=== PATIENT | female | born 1930 | race Caucasian/White ===

== ENCOUNTER → 2016-12-26 | Outpatient (CLI) | payer OTHER ==
[~2016-12-26] MED LIST: AKWA TEARS EYE15 ML OPHTHALMIC; APAP500 PO; ASPIRIN81 M2 PO; BENAZEPRIL HCL10 MG PO; CALCIUM CITRAT1 EA14 PO; CEFTIN500 MG PO; GLIPIZIDE ER5 MG PO; GLUCOPHAGE500 MG PO; GLUCOTROL5 MG PO; IBUPROFEN 200200 M1 PO; LANTUS SQ; LEVEMIR SUBQ; LORATIDINE 10 M10 M1 PO; MULTI VITAMIN1 EACH PO; MULTIVITAMINS1 EAC7 PO; NITROSTAT0.4 MG SL; PRILOSEC 20 MG20 MG PO; PROAIR HFA8.5 GM INH; VENTOLIN HFA 1818 GM INH; ZYRTEC10 M2 PO
== END ==
LOC: RAD 02:54
DX: Z12.31 Encounter for screening mammogram for malignant neoplasm of breast (principal)

== ENCOUNTER → 2017-05-30 | Outpatient (CLI) | payer OTHER | LOC: RAD 10:32 → CAT 10:33 → RAD 12:13 | DX: K57.32 Diverticulitis of large intestine without perforation or abscess without bleeding (principal); R10.2 Pelvic and perineal pain; M25.552 Pain in left hip ==

== ENCOUNTER → 2018-03-05 | Outpatient (CLI) | payer OTHER | LOC: RAD 00:51 | DX: Z12.31 Encounter for screening mammogram for malignant neoplasm of breast (principal) ==

== ENCOUNTER → 2018-04-04 | Outpatient (CLI) | payer OTHER | LOC: RAD 09:55 | DX: M41.84 Other forms of scoliosis, thoracic region (principal); M25.551 Pain in right hip ==

== ENCOUNTER → 2019-02-09 | Outpatient (CLI) | payer OTHER | LOC: NUC 06:48 | DX: I70.213 Atherosclerosis of native arteries of extremities with intermittent claudication, bilateral legs (principal); R07.9 Chest pain, unspecified; J44.9 Chronic obstructive pulmonary disease, unspecified; E11.9 Type 2 diabetes mellitus without complications; Z88.5 Allergy status to narcotic agent; Z87.898 Personal history of other specified conditions; Z82.49 Family history of ischemic heart disease and other diseases of the circulatory system; Z79.4 Long term (current) use of insulin; Z79.84 Long term (current) use of oral hypoglycemic drugs ==

== ENCOUNTER → 2019-02-18 | Outpatient (CLI) | payer OTHER ==
--- NOTE | 2019-02-18 12:17 | 2DMMODE ---
[facility] [place] [address] 2 D/M-MODE ECHOCARDIOGRAM Name: DAYNASHIN [facility] [id number] ������������� Admission: 02/18/19 ������������� Attend Phys: Ayaz Bello Discharge: ��� ������������� ��� Date of : 32 Date of Service: 02/18/19 1217 �� Report #: [id number] �������� ��������������������������������������������[id number] THIS REPORT FOR: //name// APPROVED REPORT Study performed: 02/18/2019 11:00:51 EXAM: Comprehensive 2D, Doppler, and color-flow Echocardiogram Patient Location: Out-Patient Status: routine BSA: 1.53 HR: 75 bpm BP: 168/74 mmHg Rhythm: Sinus arrhythmia Other Information Study Quality: Good Indications Chest Pain Hx: DM, COPD. 2D Dimensions IVSd: 11.05 (7-11mm) LVOT Diam: 20.16 (18-24mm) LVDd: 40.83 mm PWd: 9.71 (7-11mm) Ascending Ao: 32.22 (22-36mm) LVDs: 25.99 (25-40mm) Aortic Root: 31.63 mm Volumes Left Atrial Volume (Systole) Single Plane 4CH: 22.27 mL Single Plane 2CH: 39.48 mL LA ESV Index: 21.00 mL/m2 Aortic Valve AoV Peak Clarence.: 1.10 m/s AO Peak Gr.: 4.85 mmHg LVOT Max P.35 mmHg LVOT Max V: 0.92 m/s DEBBIE Vmax: 2.65 cm2 Mitral Valve E/A Ratio: 0.6 MV Decel. Time: 295.74 ms MV E Max Clarence.: 0.85 m/s [facility] [address] [place] [address] 2 D/M-MODE ECHOCARDIOGRAM Name: SHIN MCINTOSH [facility]#: [id number] ������������� Admission: 02/18/19 ������������� Attend Phys: Ayaz Bello Discharge: ��� ������������� ��� Date of : 32 Date of Service: 02/18/19 1217 �� Report #: [id number] �������� ��������������������������������������������[id number] MV A Clarence.: 1.38 m/s MV PHT: 85.77 ms IVRT: 92.27 ms Pulmonary Valve PV Peak Clarence.: 0.77 m/s PV Peak Gr.: 2.36 mmHg Pulmonary Vein P Vein S: 0.54 m/s P Vein A: 0.33 m/s P Vein D: 0.27 m/s P Vein A Dur.: 124.6 msec P Vein S/D Ratio: 2.00 Tricuspid Valve TR Peak Clarence.: 2.74 m/s RAP Estimate: 5.00 mmHg TR Peak Gr.: 29.99 mmHg PA Pressure: 35.00 mmHg Left Ventricle The left ventricle is normal size. There is normal LV segmental wall motion. Mild basal septal hypertrophy is present. Left ventricular systolic function is normal. LVEF is 55-60%. Mild diastolic dysfunction is present (impaired relaxation pattern). Right Ventricle The right ventricle is normal size. The right ventricular systolic function is normal. Atria The left atrium size is normal. The right atrium size is normal. Aortic Valve Aortic valve is trileaflet. No aortic regurgitation is present. There is no aortic valvular stenosis. Mitral Valve Mitral valve leaflets are mildly thickened. Moderate mitral annular calcification. Trace mitral regurgitation. No evidence of mitral valve stenosis. Tricuspid Valve The tricuspid valve is normal in structure. Mild tricuspid regurgitation. Estimated PAP is 35mmHg. Pulmonic Valve The pulmonary valve is normal in structure. Mild pulmonic [facility] [address] [place] [address] 2 D/M-MODE ECHOCARDIOGRAM Name: DAYNASHIN Room #: REG JEFF Mack#: [id number] ������������� Admission: 02/18/19 ������������� Attend Phys: Ayaz Bello Discharge: ��� ������������� ��� Date of : 32 Date of Service: 02/18/19 1217 �� Report #: [id number] �������� ��������������������������������������������[id number] regurgitation. Great Vessels The aortic root is normal in size. The ascending aorta is normal in size. IVC is normal in size and collapses >50% with inspiration. Pericardium There is no pericardial effusion. <Conclusion> The left ventricle is normal size. LVEF is 55-60%. Aortic valve is trileaflet. Mitral valve leaflets are mildly thickened. Moderate mitral annular calcification. Trace mitral regurgitation. The tricuspid valve is normal in structure. Mild tricuspid regurgitation. Estimated PAP is 35mmHg. The pulmonary valve is normal in structure. Mild pulmonic regurgitation. There is no pericardial effusion. ��������������������������������������������� <ELECTRONICALLY SIGNED> ���������������������������������������� By: Ayaz Saab MD ��������������������������������������������� 02/18/19 1217 16 16 Ayaz Saab MD /INF
== END ==
LOC: CV 10:35
DX: I08.8 Other rheumatic multiple valve diseases (principal); E11.9 Type 2 diabetes mellitus without complications; J44.9 Chronic obstructive pulmonary disease, unspecified; Z87.898 Personal history of other specified conditions

== ENCOUNTER → 2019-03-04 | Outpatient (CLI) | payer OTHER ==
[~2019-03-04] VITALS: Ht 160 cm; Wt 55.3 kg
[~2019-03-04] MED LIST changes: +PLAVIX 75 MG TA75 M1 PO
[2019-03-04 08:09] VITALS: BP 151/45
[2019-03-04 08:12] LABS: HEMATOCRIT 36.3 % (37.0-47.0); HEMOGLOBIN 12.2 gm/dL (12.0-15.0); MCH 28.9 pg (26.0-34.0); MCHC 33.6 g/dL (28.0-37.0); RBC 4.22 mil/uL (4.20-5.00); RDW 14.4 % (10.5-14.5); WBC 7.9 thou/uL (4.0-11.0)
[2019-03-04 08:20] LABS: CALCIUM 9.6 mg/dL (8.5-10.1); CREATININE 0.8 mg/dL (0.6-1.0)
== END | disposition home or self-care (01) ==
LOC: SPEC 07:29
PROVIDERS: Nuclear Medicine Nuclear Cardiology
DX: I70.248 Atherosclerosis of native arteries of left leg with ulceration of other part of lower leg (principal); L97.929 Non-pressure chronic ulcer of unspecified part of left lower leg with unspecified severity; I70.1 Atherosclerosis of renal artery; I10 Essential (primary) hypertension; I25.10 Atherosclerotic heart disease of native coronary artery without angina pectoris; E11.9 Type 2 diabetes mellitus without complications; J44.9 Chronic obstructive pulmonary disease, unspecified; F41.9 Anxiety disorder, unspecified; F32.9 Major depressive disorder, single episode, unspecified; Z90.710 Acquired absence of both cervix and uterus; Z90.49 Acquired absence of other specified parts of digestive tract; Z98.890 Other specified postprocedural states; Z87.19 Personal history of other diseases of the digestive system; Z87.891 Personal history of nicotine dependence; Z88.6 Allergy status to analgesic agent; Z88.8 Allergy status to other drugs, medicaments and biological substances; Z79.82 Long term (current) use of aspirin; Z79.899 Other long term (current) drug therapy; Z79.4 Long term (current) use of insulin

== ENCOUNTER → 2019-03-16 | Outpatient (CLI) | payer OTHER ==
[~2019-03-16] VITALS: Ht 154.9 cm; Wt 55.3 kg
[~2019-03-16] MED LIST changes: +ASPIR 8181 MG PO
[2019-03-16 07:57] VITALS: BP 184/85
== END ==
LOC: SPEC 06:58
DX: I70.211 Atherosclerosis of native arteries of extremities with intermittent claudication, right leg (principal); I25.10 Atherosclerotic heart disease of native coronary artery without angina pectoris; E78.5 Hyperlipidemia, unspecified; F32.9 Major depressive disorder, single episode, unspecified; J44.9 Chronic obstructive pulmonary disease, unspecified; E11.9 Type 2 diabetes mellitus without complications; Z87.891 Personal history of nicotine dependence; Z90.710 Acquired absence of both cervix and uterus; Z95.820 Peripheral vascular angioplasty status with implants and grafts

== ENCOUNTER 2019-05-23 20:55 | Emergency (ER) | payer OTHER ==
[~2019-05-23] VITALS: Ht 160 cm; Wt 56.7 kg
[2019-05-23] MEDS ORDERED: ULTRAM 50MG TAB50 MG PO (23:53)
[2019-05-24 00:10] VITALS: BP 170/65
== END 2019-05-24 00:30 | disposition home or self-care (01) ==
LOC: ER 20:55
DX: S80.01XA Contusion of right knee, initial encounter (principal); M71.21 Synovial cyst of popliteal space [Baker], right knee; E11.9 Type 2 diabetes mellitus without complications; J44.9 Chronic obstructive pulmonary disease, unspecified; F41.9 Anxiety disorder, unspecified; K58.9 Irritable bowel syndrome, unspecified; I25.10 Atherosclerotic heart disease of native coronary artery without angina pectoris; E78.5 Hyperlipidemia, unspecified; F32.9 Major depressive disorder, single episode, unspecified; Z90.49 Acquired absence of other specified parts of digestive tract; Z98.890 Other specified postprocedural states; Z87.891 Personal history of nicotine dependence; Z88.8 Allergy status to other drugs, medicaments and biological substances; Z88.6 Allergy status to analgesic agent; X58.XXXA Exposure to other specified factors, initial encounter; Y93.89 Activity, other specified; Y92.89 Other specified places as the place of occurrence of the external cause; Y99.8 Other external cause status

== ENCOUNTER 2019-06-17 11:05 | Inpatient (IN) | payer OTHER ==
[~2019-06-17] VITALS: Ht 157.5 cm; Wt 54.7 kg
[~2019-06-17 11:05] MED LIST changes: +ULTRAM 50MG TAB50 MG PO
[2019-06-17 11:06] VITALS: BP 129/65
[2019-06-17 11:35] LABS: URINE BILIRUBIN NEGATIVE (Negative); URINE BLOOD NEGATIVE (Negative); URINE CLARITY CLEAR; URINE COLOR YELLOW; URINE GLUCOSE-RANDOM* NEGATIVE (Negative); URINE KETONES NEGATIVE (Negative); URINE LEUKOCYTES NEGATIVE (Negative); URINE NITRITE NEGATIVE (Negative); URINE PROTEIN (DIPSTICK) NEGATIVE (Negative); URINE UROBILINOGEN 0.2 E.U./dl (0.2-1.0)
[2019-06-17 11:41] LABS: BASOPHILS 0.8 % (0.0-2.0); EOSINOPHILS 0.9 % (0.0-3.0); HEMATOCRIT 37.9 % (37.0-47.0); HEMOGLOBIN 12.6 gm/dL (12.0-15.0); LYMPHOCYTES 13.1 % (24.0-44.0); MCH 28.6 pg (26.0-34.0); MCHC 33.4 g/dL (28.0-37.0); MCV 85.7 fL (80.0-100.0); MONOCYTES 8.9 % (1.0-8.0); PLATELET COUNT 243 thou/uL (150-400); POLYS 76.3 % (36.0-66.0); RBC 4.42 mil/uL (4.20-5.00); RDW 15.2 % (10.5-14.5); WBC 9.2 thou/uL (4.0-11.0)
[2019-06-17 11:48] LABS: CALCIUM 9.7 mg/dL (8.5-10.1); CREATININE 0.8 mg/dL (0.6-1.0); POTASSIUM 4.1 mmol/L (3.5-5.1)
[2019-06-17 11:53] LABS: TOTAL BILIRUBIN 0.5 mg/dL (<0.1-1.0); TOTAL PROTEIN 8.7 g/dL (6.4-8.2)
[2019-06-17 12:47] VITALS: BP 102/66
[2019-06-17 13:48] VITALS: BP 144/43
[2019-06-17 14:37] LABS: FOLIC ACID 18.7 ng/mL (8.6-58.9)
[2019-06-17 14:45] VITALS: BP 143/72
--- NOTE | 2019-06-17 16:32 | EKG ---
[address] [address] ELECTROCARDIOGRAM REPORT Name: SHIN MCINTOSH Room #: 215-P ADM IN M.R.#: [id number] ������������������ Admission: 06/17/19 ������������������ Attend Phys: Troy Gorman MD Discharge: ������������������ Date of : 31 Report #: [id number] ����������������������������������������������������������������� [id number] THIS REPORT FOR: //name// [facility] ED Test Date: 2019-06-17 Test Time: 11:21:47 Pat Name: SHIN MCINTOSH Department: Room: Gender: F Order Processing Manager: : 1930 Requested By: Order Number: [id number] MD: Junior Medina Measurements Intervals [place] Rate: 84 P: 48 PA: 172 QRS: -50 QRSD: 122 T: 111 QT: 381 QTc: 451 Interpretive Statements Sinus rhythm Atrial premature complex Left bundle branch block Baseline wander in lead(s) I,II,aVR Compared to ECG 12/15/2016 14:25:18 Atrial premature complex(es) now present Electronically Signed On 06-17-2019 16:31:51 CDT by Junior Medina [email or web address] ��������������������������������������������� <ELECTRONICALLY SIGNED> ���������������������������������������� By: Junior Medina MD ��������������������������������������������� 06/17/19 1631 1121 1121 Junior Medina MD /EPI
--- NOTE | 2019-06-17 18:23 | NUR ---
ASSUMMED PT CARE AT APPROXIMATELY 1445. PT A&O X4. VITAL SIGNS STABLE. BLOOD SUGAR STABLE. ASSESSMENT CHARTED. PT ACCOMPANIED WITH FAMILY. PT AND FAMILY EDUCATED WITH POC. PT AND FAMILY DENIED FURTHER QUESTIONS. FALL PRECAUTIONS IN PLACE. PT AMBULATES STEADY WITH ASSIST X1. ADMISSION PROCESS COMPLETE. PT STATED SHE HAD R KNEE PAIN. PT RECEIVED ANALGESICS. PT STATED PAIN RELIEVED WITH ANALGESICS. PT COMFORTABLE IN BED. PT DENIED HAVING CHEST PAIN. PT DENIED HAVING SOB.
[2019-06-17 20:17] VITALS: BP 108/57
[2019-06-17 20:44] VITALS: BP 128/64
[2019-06-18 00:16] VITALS: BP 130/56
[2019-06-18 04:51] VITALS: BP 124/65
[2019-06-18 05:34] LABS: CALCIUM 9.1 mg/dL (8.5-10.1); CREATININE 0.7 mg/dL (0.6-1.0); MAGNESIUM 2.1 mg/dL (1.8-2.4); POTASSIUM 4.6 mmol/L (3.5-5.1)
[2019-06-18 05:35] LABS: ABSOLUTE NEUTROPHILS 3.7 thou/uL (1.4-8.2); BASOPHILS 1.1 % (0.0-2.0); EOSINOPHILS 4.2 % (0.0-3.0); HEMATOCRIT 35.2 % (37.0-47.0); HEMOGLOBIN 11.6 gm/dL (12.0-15.0); LYMPHOCYTES 25.1 % (24.0-44.0); MCH 28.1 pg (26.0-34.0); MCHC 32.9 g/dL (28.0-37.0); MCV 85.5 fL (80.0-100.0); MONOCYTES 11.6 % (1.0-8.0); PLATELET COUNT 214 thou/uL (150-400); RBC 4.12 mil/uL (4.20-5.00); RDW 14.9 % (10.5-14.5); WBC 6.4 thou/uL (4.0-11.0)
--- NOTE | 2019-06-18 06:36 | NUR ---
ASSUME CARE 1900. PT/VITALS STABLE. ADEQUATE REST NOTED THROUGH NIGHT. INTERMITTENT LEFT KNEE PAIN/ WITH MEDS FOR RELIEF. TOLERATES ACTIVITY WELL. UP TO BATHROOM WITH ASSISTANCE. PROGRESSING WELL WITH POC. PLAN IS TO CONTINUE TO MONITOR LEVEL OF CONCIOUSNESS AND BLOOD SUGAR LEVELS. SWS WITH DISCHARGE PLANNING. WILL CONTINUE TO MONITOR AND FOLLOW WI POC
[2019-06-18 08:00] VITALS: BP 105/54
[2019-06-18 12:00] VITALS: BP 117/38
--- NOTE | 2019-06-18 13:40 | NUR ---
Case opened to follow for dc planning. Early Childhood Education Worker visited with the pt at bedside this morning and her son Chadwick via phone this afternoon. Pt was able to participate dc planning conversation. She lives alone in her home of 50+yrs. She has been a since last summer. She is able to express her grief and adjustment to living alone. She reports her sons Chadwick and Rizwan are involved daily and supportive. She drives and manages her IADL's. She has one step to enter her home and one inside down to the living room. Her bedroom,bath and kitchen are all on the same level. She does not use an assistive device but has lots of used dme if needed. She manages her own medications and checks her blood sugars. She has lifline but did not remember to press the button when she woke up not feeling well. Her sons confirmed the above assessment info and indicates that she has neighbors that check in on her also. He has asked her to come live with him in [place] but she has wanted to stay in her own home. He will talk with her and his brother regarding 24hr supervision, no driving and medication mgnt. They may need to stay with her if she is unwilling to move in with them. He does not feel she can afford private duty. Both are receptive to HH referral if indicated and or SNF;however she has not needed this in the past. Awaiting PT eval and recommendations. Possible dc tomorrow. Will follow.
[2019-06-18 16:00] VITALS: BP 131/58
--- NOTE | 2019-06-18 17:26 | NUR ---
PT CARE ASSUMED APPROX 0915. PT ALERT AND ORIENTED X4. DENIES PAIN AND SOA. VSS. BS ELEVATED BUT POC ADJUSTED FOR ADEQUATE MANAGEMENT OF HYPERGLYCEMIA. WILL MONITOR. PT UP WITH SBA AND WALKER. STEADY. FALL PRECAUTIONS MAINTAINED. PT AND FAMILY UPDATED REGARDED CHANGES TO POC. ALL DENY QUESTIONS AND CONCERNS REGARDING POC. PT TOLERATING CHANGES TO POC. NO DISTRESS NOTED.
[2019-06-18 19:37] VITALS: BP 146/62
[2019-06-19] VITALS (7 sets, daily range): BP systolic 121–133; BP diastolic 63–68
--- NOTE | 2019-06-19 07:27 | NUR ---
ASSUME CARE 1900. PT/VITALS STABLE. INTERMITTENT RIGHT KNEE PAIN. UP WITH ASSISTANCE TO BATHROOM. ASSESSMENT CHARTED. PROGRESSING WELL WITH POC. A/o X 4. BS STABILIZED. PLAN IS A POSSIBLE DISCHARGE TODAY BACK HOME. WILL BENEFIT FROM CASE MANAGEMENT AND SWS DISCAHRGE PLANNING. WILL CONTINUE TO MONITOR AND FOLLOW WITH POC
--- NOTE | 2019-06-19 08:16 | HC ---
[facility] [place] [address] CONSULTATION Name: SHIN MCINTOSH Room #: 215-P [facility] IN M.R.#: [id number] Admission: 06/17/19 ������������������ Attend Phys: Troy Gorman MD Discharge: ������������������ Date of : 31 Report #: [id number] THIS REPORT FOR: //name// CC: Herbert Gorman DATE OF SERVICE: 06/18/2019 CONSULTING PHYSICIAN: ____. REASON FOR CONSULTATION: Uncontrolled type 2 diabetes mellitus, hypoglycemia. HISTORY OF PRESENT ILLNESS: This is an 88-year-old female patient whose medical background is significant for longstanding type 2 diabetes mellitus as well as asthma and COPD. The patient has been maintained on a regimen of Levemir insulin 50 units q.p.m. as well as glipizide 5 mg b.i.d. and metformin 500 mg b.i.d. The patient notes that she has run into trouble with hypoglycemia a few months ago, which had led Dr. Zendejas to propose a reduction in her insulin dose from 50 to 30 units. She notes that when this reduction had actually taken place that she has done much better and that hypoglycemia virtually disappeared. However, the patient reports that she had decided about a week ago to resume the intake of 50 units of Levemir at night and since she has done that, she has experienced significant and recurrent issues with hypoglycemia with blood glucose values reaching as low as 50 mg/dL and mostly doing so while she is sleeping and in the early mornings. The patient knows that she was confused and unable to recall names and phone numbers when she underwent her last hypoglycemic episode and was subsequently admitted for further care and monitoring. The patient notes that she has had some eye complications due to diabetes in the past, but not chronic kidney disease. She also has peripheral diabetic neuropathy affecting both hands to where she cannot quilt anymore, which is something she has done for years, the patient has extensive vascular disease and had needed one stent placed in her left lower extremity and 3 stents placed in her right lower extremity less than 6 months ago. The patient notes/knows that she has not been getting out much due to her knee pain as that can stop her from being able to drive. Also, she has been somewhat depressed since her less than a year ago. REVIEW OF SYSTEMS: CONSTITUTIONAL: Fatigue, tiredness, but not fever or chills or changes in body weight. HEENT: Negative for sinus congestion, ear pain or ear drainage. [facility] [address] [place] [address] CONSULTATION Name: SHIN MCINTOSH Room #: 215-P [facility] IN .R.#: [id number] Admission: 06/17/19 ������������������ Attend Phys: Troy Gorman MD Discharge: ������������������ Date of : 31 Report #: [id number] PULMONARY: Noted for dyspnea on exertion and occasional shortness of breath and cough, but no hemoptysis. CARDIAC: Occasional palpitations, but no chest pain, syncope or presyncope. GASTROINTESTINAL: Negative for abdominal pain, nausea, vomiting or significant changes in bowel movement frequency. NEUROLOGY: Imbalance as of late, but not seizures or headaches. PSYCHIATRIC: Slightly depressed mood since the passing of her less than a year ago, has not felt like interacting or socializing much. REVIEW OF SYSTEMS: Noncontributory other than as mentioned in HPI. PAST MEDICAL HISTORY: 1. Type 2 diabetes mellitus. 2. Peripheral vascular disease, status post stent placements, 1 in the left lower extremity, 3 in the right lower extremity in January 2019. 3. COPD. 4. Diverticulosis. 5. IBS. 6. Depression. 7. GERD. 8. Anxiety. 9. Coronary artery disease. OUTPATIENT MEDICATIONS: Include metformin 500 mg b.i.d., omeprazole 20 mg daily, Levemir 50 units at bedtime, glipizide ER 5 mg b.i.d., Plavix 75 mg daily, aspirin 81 mg daily. ALLERGIES: CODEINE, DOXEPIN, FEXOFENADINE, LANSOPRAZOLE, MINOCYCLINE, MORPHINE and GUAIFENESIN. FAMILY HISTORY: Noncontributory. SOCIAL HISTORY: She lives by herself. She is an ex-smoker. PHYSICAL EXAMINATION: GENERAL: A pleasant elderly female patient who is not in apparent pain or distress. She is lying comfortably in bed. VITAL SIGNS: Blood pressure is 105/54 mmHg, heart rate is 77 beats per minute, respirations 18 per minute, temperature 36.1 degrees. CONSTITUTIONAL: She appears comfortable, not in apparent distress, conversant. HEENT: Anicteric sclerae. Intact extraocular motions. NECK: Supple, without JVD, carotid bruits or lymphadenopathy. I do not appreciate thyromegaly. CHEST: Shows moderate air entry with scattered rales and rhonchi, but without crackles. HEART: Regular rate and rhythm without murmurs or gallops. [facility] [address] [place] [address] CONSULTATION Name: SHIN MCINTOSH Room #: 704-P ADM IN Adriano.#: [id number] Admission: 06/17/19 ������������������ Attend Phys: Troy Gorman MD Discharge: ������������������ Date of : 31 Report #: [id number] ABDOMEN: Soft and lax without tenderness or organomegaly. She has active bowel sounds. EXTREMITIES: Lower extremity exam is negative for ankle edema. The patient has good pedal pulses bilaterally. NEUROLOGIC: Awake, alert and oriented to time, place and person. The remainder of her examination is nonfocal other than for sensory deficit over both lower extremities. PSYCHIATRIC: Pleasant, interactive, appropriate, has normal mood and affect. SKIN: Negative for ulceration discoloration or other major changes. LABORATORY RESULTS: Blood glucose values since arrival have run between 98 and 159 mg/dL. Sodium 132, potassium 4.6, chloride 97, CO2 of 26, anion gap 9, BUN 11, creatinine 0.7, glucose 83, AST 19, amylase 44, lipase 117, total bilirubin 0.5, calcium 9.1, magnesium 2.1, alkaline phosphatase 89, ALT 16, total protein 8.7, albumin 4.0, GFR 79. Lactic acid 1.2. CPK 67. Total cholesterol 137, triglycerides 160, HDL 30, LDL 75. BNP 275. White blood count 6.4, hemoglobin 11.6, hematocrit 35.2, platelets 214, LDL 88 mg/dL, HDL 36 mg/dL, triglycerides 203. TSH 2.607. Vitamin B12 of 406. Hemoglobin A1c 7.8%. ASSESSMENT AND PLAN: 1. Type 2 diabetes mellitus. As noted above, the patient has had a longstanding history of type 2 diabetes mellitus and has done historically well on her regimen. As noted above, the patient's recent issues pertaining more to recurrent and occasionally severe hypoglycemia, which is obviously a main concern, especially that she lives by herself. These considerations were discussed with the patient at length and she seems to be well aware of the implications of such severe hypoglycemia. I advised the patient to commit to Dr. Zendejas's advice regarding the reduction in her insulin dosage and she acknowledged that she should have consulted with him prior to titrating her dose up again to 50 units. In the immediate setting where I would like to do is to resume Levemir at a much lower dose of 30 units daily, but as significantly would rather give her Levemir in the morning as opposed in the evening, so as to decrease the odds of nocturnal hypoglycemia. In the meantime, the patient could continue with her oral medications. I will rule this out to where we will resume metformin here in the hospital, but then have her resume glipizide when she is more stable towards the end of her hospital stay. I stressed the importance of maintaining blood glucose monitoring and avoiding hypoglycemia going forward, which she seemed to understand well. The patient's hemoglobin A1c of 7.8%, good ____ to improve, but I believe the most pressing priority at this point in time would be to eliminate hypoglycemia in the near future. 2. Hypoglycemia. As discussed above, this would be addressed via a series of therapeutic changes, I believe this should take precedence over targeting a more tightly controlled hemoglobin A1c. 3. Hypomagnesemia at 1.7 mg/dL, this has been handled by Hospital Medicine. I agree with the current measures. [address] [address] CONSULTATION Name: SHIN MCINTOSH Room #: 215-P ADM IN M.R.#: [id number] Admission: 06/17/19 ������������������ Attend Phys: Troy Gorman MD Discharge: ������������������ Date of : 31 Report #: [id number] I certainly appreciate this consultation by ____ and appreciate the opportunity to participate in the care of Dr. Zendejas's patient. ��������������������������������������������� <ELECTRONICALLY SIGNED> ���������������������������������������� By: Nayeli Villanueva MD ��������������������������������������������� 06/19/19 0816 1114 1944 Nayeli Villanueva MD /nt
[2019-06-19] MEDS ORDERED: B-12500 MCG PO (11:57)
[2019-06-19] MEDS ORDERED: VITAMIN D2000 UNIT PO (11:57)
[2019-06-19] MEDS ORDERED: MIRALAX17 GM PO (11:57)
[2019-06-19] MEDS ORDERED: ACETAMINOPHEN325 M1 PO (11:57)
--- NOTE | 2019-06-19 14:28 | NUR ---
Pt dcing home today via family car. Her son Chadwick will be here around 3pm to transport her home. Pt's sons are working on providing more supervision and med mngmt for the pt to stay in her own home. HH referral discussed with the pt at bedside and son via phone. She denies any preference as long as they contract with her ins plan. Dc community development planner to fax referral to [facility] for start of care tomorrow (Sat). Pt has a rwalker at home that she can use. Care team updated. No other needs noted at this time. Pt aware that the attending has advised med mngt, 24hr supervision and no driving. Her son is aware as well. [facility] is out of network. Maddie is participating with her ins plan. They will reveiw and confirm soc for tomorrow.
--- NOTE | 2019-06-19 15:54 | NUR ---
FAXED REFERRAL TO [facility] SPOKE WITH MELODY IN INTAKE SHE RECEIVED REFERRAL AND CAN ACCEPT. FAXED DC ORDERS/SUMMARY AND RECEIVED CONFIRMATION.
== END 2019-06-19 15:00 | disposition home health service (06) | DRG 638 ==
LOC: ER 11:05 → EROBS 12:32 → 2N 12:32 → ENTRNSPT 06-19 15:44 → EDTRNSPTSTS 06-19 16:00
PROVIDERS: Emergency Medicine Emergency Medical Services; Nurse Practitioner; ADMIT Internal Medicine
DX: E11.649 Type 2 diabetes mellitus with hypoglycemia without coma (principal); E87.1 Hypo-osmolality and hyponatremia; G92 Toxic encephalopathy; J45.909 Unspecified asthma, uncomplicated; J44.9 Chronic obstructive pulmonary disease, unspecified; F41.9 Anxiety disorder, unspecified; I25.10 Atherosclerotic heart disease of native coronary artery without angina pectoris; E78.5 Hyperlipidemia, unspecified; F32.9 Major depressive disorder, single episode, unspecified; E11.51 Type 2 diabetes mellitus with diabetic peripheral angiopathy without gangrene; K57.90 Diverticulosis of intestine, part unspecified, without perforation or abscess without bleeding; K58.9 Irritable bowel syndrome, unspecified; K21.9 Gastro-esophageal reflux disease without esophagitis; E83.42 Hypomagnesemia; Z66 Do not resuscitate; Z90.710 Acquired absence of both cervix and uterus; Z90.49 Acquired absence of other specified parts of digestive tract; Z95.820 Peripheral vascular angioplasty status with implants and grafts; Z88.6 Allergy status to analgesic agent; Z88.8 Allergy status to other drugs, medicaments and biological substances; Z87.891 Personal history of nicotine dependence
CPT/HCPCS: 10081

== ENCOUNTER → 2019-10-20 | Outpatient (CLI) | payer OTHER ==
[~2019-10-20] MED LIST changes: +ACETAMINOPHEN325 M1 PO; +B-12500 MCG PO; +MIRALAX17 GM PO; +TOPROL XL25 MG PO; +TRESIBA FL100 UNIT/1 SUBQ; +VITAMIN D2000 UNIT PO
== END ==
LOC: SJCVC 12:41
DX: R00.2 Palpitations (principal); R07.89 Other chest pain; M79.604 Pain in right leg; M79.605 Pain in left leg; E11.9 Type 2 diabetes mellitus without complications; Z90.49 Acquired absence of other specified parts of digestive tract; Z90.710 Acquired absence of both cervix and uterus; Z95.5 Presence of coronary angioplasty implant and graft; Z79.899 Other long term (current) drug therapy; Z87.891 Personal history of nicotine dependence; Z82.49 Family history of ischemic heart disease and other diseases of the circulatory system

== ENCOUNTER 2019-10-27 13:19 | Inpatient (IN) | payer OTHER ==
[~2019-10-27] VITALS: Ht 157.5 cm; Wt 62.6 kg
[~2019-10-27 13:19] MED LIST changes: -TOPROL XL25 MG PO; -TRESIBA FL100 UNIT/1 SUBQ
[2019-10-27 13:24] VITALS: BP 87/34
[2019-10-27] MEDS ORDERED: TOPROL XL25 MG PO (13:37)
[2019-10-27] MEDS ORDERED: TRESIBA FL100 UNIT/1 SUBQ (13:42)
[2019-10-27 15:03] LABS: ANION GAP 11 mmol/L (7-16); BUN 17 mg/dL (7-18); CALCIUM 9.7 mg/dL (8.5-10.1); CHLORIDE 96 mmol/L (98-107); CO2 23 mmol/L (21-32); CREATININE 0.9 mg/dL (0.6-1.0); GLUCOSE 148 mg/dL (74-106); POTASSIUM 4.1 mmol/L (3.5-5.1); SODIUM 130 mmol/L (136-145)
[2019-10-27 15:12] LABS: URINE BILIRUBIN NEGATIVE (Negative); URINE BLOOD NEGATIVE (Negative); URINE CLARITY CLEAR; URINE COLOR YELLOW; URINE GLUCOSE-RANDOM* NEGATIVE (Negative); URINE KETONES 1+ (Negative); URINE LEUKOCYTES-REFLEX NEGATIVE (Negative); URINE NITRITE-REFLEX NEGATIVE (Negative); URINE PROTEIN (DIPSTICK) NEGATIVE (Negative); URINE SPECIFIC GRAVITY 1.015 (1.005-1.035); URINE UROBILINOGEN 0.2 E.U./dl (0.2-1.0)
[2019-10-27 15:13] LABS: DIRECT BILIRUBIN < 0.1 mg/dL (<0.1-0.2); MAGNESIUM 1.4 mg/dL (1.8-2.4); SGOT 16 U/L (15-37); SGPT 18 U/L (30-65); TOTAL BILIRUBIN 0.6 mg/dL (<0.1-1.0); TOTAL PROTEIN 8.4 g/dL (6.4-8.2); TROPONIN-I <0.06 ng/mL (<0.06)
[2019-10-27 15:58] LABS: ABSOLUTE NEUTROPHILS 5.9 thou/uL (1.4-8.2); BASOPHILS 1.1 % (0.0-2.0); EOSINOPHILS 0.4 % (0.0-3.0); HEMOGLOBIN 12.9 gm/dL (12.0-15.0); LYMPHOCYTES 17.8 % (24.0-44.0); MCH 28.9 pg (26.0-34.0); MCHC 33.1 g/dL (28.0-37.0); MCV 87.4 fL (80.0-100.0); MONOCYTES 7.7 % (1.0-8.0); PLATELET COUNT 206 thou/uL (150-400); RBC 4.47 mil/uL (4.20-5.00); RDW 14.4 % (10.5-14.5); WBC 8.1 thou/uL (4.0-11.0)
[2019-10-27 17:39] VITALS: BP 125/64
[2019-10-27 17:55] LABS: TSH 1.81 uIU/mL (0.358-3.740)
[2019-10-28 05:54] LABS: ANION GAP 11 mmol/L (7-16); BUN 22 mg/dL (7-18); CALCIUM 8.7 mg/dL (8.5-10.1); CHLORIDE 102 mmol/L (98-107); CO2 23 mmol/L (21-32); CREATININE 0.7 mg/dL (0.6-1.0); GLUCOSE 46 mg/dL (74-106); POTASSIUM 3.3 mmol/L (3.5-5.1); SODIUM 136 mmol/L (136-145)
[2019-10-28 06:03] LABS: ALBUMIN 3.5 g/dL (3.4-5.0); PHOSPHORUS 3.6 mg/dL (2.5-4.9); TROPONIN-I <0.06 ng/mL (<0.06)
[2019-10-28 07:42] VITALS: BP 128/71
--- NOTE | 2019-10-28 07:58 | EKG ---
[place] [address] [facility] [employer] [place] [address] ELECTROCARDIOGRAM REPORT Name: SHIN MCINTOSH Room #: 445-P ADM IN M.R.#: [id number] Admission: 10/27/19 Attend Phys: Chiquis Edmonds Discharge: Date of : 31 Report #: [id number] THIS REPORT FOR: //name// [facility] ED Test Date: 2019-10-27 Test Time: 13:30:14 Pat Name: SHIN MCINTOSH Department: Room: [facility] Gender: F Captain Room Service: JOHN : 1930 Requested By: Nathan Fan Order Number: [id number] MD: Junior Medina Measurements Intervals [place] Rate: 119 P: 75 RI: 174 QRS: -52 QRSD: 115 T: 114 QT: 353 QTc: 497 Interpretive Statements Sinus tachycardia Ventricular bigeminy Probable left atrial enlargement Left anterior fascicular block LVH with secondary repolarization abnormality Compared to ECG 06/17/2019 11:21:47 Electronically Signed On 10-28-2019 7:57:36 [employer] by Junior Medina [email or web address] <ELECTRONICALLY SIGNED> By: Junior Medina MD 10/28/19 0757 1330 1330 Junior Medina MD /EPI
[2019-10-28 21:18] VITALS: BP 196/84
[2019-10-28 22:29] VITALS: BP 167/85
[2019-10-29 06:32] LABS: CALCIUM 8.7 mg/dL (8.5-10.1); CREATININE 0.7 mg/dL (0.6-1.0); POTASSIUM 4.1 mmol/L (3.5-5.1)
[2019-10-29 07:44] VITALS: BP 152/66
[2019-10-29 09:44] VITALS: BP 125/53
[2019-10-29 10:25] VITALS: BP 125/53
[2019-10-29 10:41] VITALS: BP 125/53
== END 2019-10-29 12:26 | disposition home health service (06) | DRG 641 ==
LOC: ER 13:19 → EROBS 17:32 → 4S 17:32 → 4N 10-28 20:55 → ENTRNSPT 10-29 11:36 → EDTRNSPTSTS 10-29 11:39 → 4N 10-29 12:26
PROVIDERS: Emergency Medicine; ADMIT Hospitalist
DX: E87.1 Hypo-osmolality and hyponatremia (principal); N17.9 Acute kidney failure, unspecified; E46 Unspecified protein-calorie malnutrition; E86.1 Hypovolemia; E86.0 Dehydration; J44.9 Chronic obstructive pulmonary disease, unspecified; E11.9 Type 2 diabetes mellitus without complications; F41.9 Anxiety disorder, unspecified; K58.9 Irritable bowel syndrome, unspecified; I25.10 Atherosclerotic heart disease of native coronary artery without angina pectoris; E78.5 Hyperlipidemia, unspecified; I49.3 Ventricular premature depolarization; I10 Essential (primary) hypertension; F32.9 Major depressive disorder, single episode, unspecified; E83.42 Hypomagnesemia; Z90.710 Acquired absence of both cervix and uterus; Z87.891 Personal history of nicotine dependence; Z95.820 Peripheral vascular angioplasty status with implants and grafts; Z79.82 Long term (current) use of aspirin; Z90.49 Acquired absence of other specified parts of digestive tract; Z79.4 Long term (current) use of insulin; Z79.899 Other long term (current) drug therapy; Z88.5 Allergy status to narcotic agent; Z88.8 Allergy status to other drugs, medicaments and biological substances; Z68.25 Body mass index [BMI] 25.0-25.9, adult; Z91.14 Patient's other noncompliance with medication regimen
CPT/HCPCS: 10091; 10195

== ENCOUNTER → 2019-11-02 | Outpatient (CLI) | payer OTHER ==
[~2019-11-02] MED LIST changes: +TOPROL XL25 MG PO; +TRESIBA FL100 UNIT/1 SUBQ
== END ==
LOC: SJCVCIMAG 12:09
DX: I70.203 Unspecified atherosclerosis of native arteries of extremities, bilateral legs (principal); E11.9 Type 2 diabetes mellitus without complications; I25.10 Atherosclerotic heart disease of native coronary artery without angina pectoris; I65.29 Occlusion and stenosis of unspecified carotid artery; E78.5 Hyperlipidemia, unspecified; Z79.4 Long term (current) use of insulin; Z90.710 Acquired absence of both cervix and uterus; Z79.82 Long term (current) use of aspirin; Z79.899 Other long term (current) drug therapy

== ENCOUNTER → 2019-11-19 | Outpatient (CLI) | payer OTHER | LOC: SJCVC 15:13 | DX: I25.10 Atherosclerotic heart disease of native coronary artery without angina pectoris (principal); I73.9 Peripheral vascular disease, unspecified; E11.9 Type 2 diabetes mellitus without complications; Z79.4 Long term (current) use of insulin; Z90.49 Acquired absence of other specified parts of digestive tract; Z90.710 Acquired absence of both cervix and uterus; Z79.899 Other long term (current) drug therapy; Z87.891 Personal history of nicotine dependence ==

== ENCOUNTER → 2020-05-12 | Outpatient (CLI) | payer OTHER | LOC: SJCVCIMAG 06:44 | PROVIDERS: ATTEND Nuclear Medicine Nuclear Cardiology | DX: I70.203 Unspecified atherosclerosis of native arteries of extremities, bilateral legs (principal); I65.23 Occlusion and stenosis of bilateral carotid arteries; I25.10 Atherosclerotic heart disease of native coronary artery without angina pectoris; E11.9 Type 2 diabetes mellitus without complications; E78.00 Pure hypercholesterolemia, unspecified; Z95.820 Peripheral vascular angioplasty status with implants and grafts; Z82.49 Family history of ischemic heart disease and other diseases of the circulatory system; Z87.891 Personal history of nicotine dependence; Z79.82 Long term (current) use of aspirin; Z79.899 Other long term (current) drug therapy ==

== ENCOUNTER → 2020-05-18 | Outpatient (CLI) | payer OTHER ==
[~2020-05-18] VITALS: Ht 157.5 cm; Wt 54.4 kg
[~2020-05-18] MED LIST changes: +GLIPIZIDE 5 MG T5 MG PO; +LIPITOR40 MG PO; +NITROSTAT0.4 M1 SUBLING; +NOVOLOG100 UNIT/1 SUBQ; +OMEPRAZOLE 20 M20 M1 PO; +PREVAGEN PO
[2020-05-18 08:28] VITALS: BP 161/57
[2020-05-18 08:45] LABS: HEMATOCRIT 37.2 % (37.0-47.0); HEMOGLOBIN 12.6 gm/dL (12.0-15.0); MCH 30.3 pg (26.0-34.0); MCV 89.2 fL (80.0-100.0); RBC 4.17 mil/uL (4.20-5.00); RDW 14.3 % (10.5-14.5); WBC 6.7 thou/uL (4.0-11.0)
[2020-05-18 08:48] LABS: CALCIUM 9.2 mg/dL (8.5-10.1); CREATININE 0.9 mg/dL (0.6-1.0); POTASSIUM 4.4 mmol/L (3.5-5.1)
== END | disposition home or self-care (01) ==
LOC: CATH 07:44
PROVIDERS: ATTEND Nuclear Medicine Nuclear Cardiology
DX: I70.212 Atherosclerosis of native arteries of extremities with intermittent claudication, left leg (principal); I70.1 Atherosclerosis of renal artery; I10 Essential (primary) hypertension; I25.10 Atherosclerotic heart disease of native coronary artery without angina pectoris; E11.9 Type 2 diabetes mellitus without complications; J44.9 Chronic obstructive pulmonary disease, unspecified; E78.5 Hyperlipidemia, unspecified; F32.9 Major depressive disorder, single episode, unspecified; F41.9 Anxiety disorder, unspecified; Z98.890 Other specified postprocedural states; Z79.899 Other long term (current) drug therapy; Z90.49 Acquired absence of other specified parts of digestive tract; Z87.891 Personal history of nicotine dependence; Z90.710 Acquired absence of both cervix and uterus; Z87.19 Personal history of other diseases of the digestive system; Z79.4 Long term (current) use of insulin; Z88.8 Allergy status to other drugs, medicaments and biological substances

== ENCOUNTER 2020-06-10 19:51 | Emergency (ER) | payer OTHER ==
[~2020-06-10] VITALS: Ht 152.4 cm; Wt 54.9 kg
[2020-06-10 22:18] VITALS: BP 169/63
== END 2020-06-10 22:19 | disposition home or self-care (01) ==
LOC: ER 19:51
DX: S41.111A Laceration without foreign body of right upper arm, initial encounter (principal); J44.9 Chronic obstructive pulmonary disease, unspecified; E78.5 Hyperlipidemia, unspecified; I25.10 Atherosclerotic heart disease of native coronary artery without angina pectoris; E11.9 Type 2 diabetes mellitus without complications; Z90.49 Acquired absence of other specified parts of digestive tract; Z79.4 Long term (current) use of insulin; Z79.82 Long term (current) use of aspirin; Z79.899 Other long term (current) drug therapy; Z88.8 Allergy status to other drugs, medicaments and biological substances; Z87.891 Personal history of nicotine dependence; W18.39XA Other fall on same level, initial encounter; Y93.89 Activity, other specified; Y92.89 Other specified places as the place of occurrence of the external cause; Y99.8 Other external cause status

== ENCOUNTER → 2020-07-21 | Outpatient (CLI) | payer OTHER | LOC: SJCVC 10:28 | PROVIDERS: ATTEND Internal Medicine | DX: I25.10 Atherosclerotic heart disease of native coronary artery without angina pectoris (principal); I73.9 Peripheral vascular disease, unspecified; E11.9 Type 2 diabetes mellitus without complications; Z79.899 Other long term (current) drug therapy; Z87.891 Personal history of nicotine dependence ==

== ENCOUNTER → 2020-08-16 | Outpatient (CLI) | payer OTHER | LOC: SJCVCIMAG 10:24 | PROVIDERS: ATTEND Nuclear Medicine Nuclear Cardiology | DX: I70.202 Unspecified atherosclerosis of native arteries of extremities, left leg (principal); I25.10 Atherosclerotic heart disease of native coronary artery without angina pectoris; I77.9 Disorder of arteries and arterioles, unspecified; E78.00 Pure hypercholesterolemia, unspecified; E11.9 Type 2 diabetes mellitus without complications; Z79.4 Long term (current) use of insulin; Z79.899 Other long term (current) drug therapy; Z87.891 Personal history of nicotine dependence ==

== ENCOUNTER 2020-12-17 10:57 | Emergency (ER) | payer OTHER ==
[~2020-12-17] VITALS: Ht 157.5 cm; Wt 55.3 kg
[2020-12-17 11:30] LABS: URINE BILIRUBIN NEGATIVE (Negative); URINE BLOOD NEGATIVE (Negative); URINE CLARITY CLEAR; URINE COLOR YELLOW; URINE GLUCOSE-RANDOM* NEGATIVE (Negative); URINE KETONES NEGATIVE (Negative); URINE LEUKOCYTES-REFLEX NEGATIVE (Negative); URINE NITRITE-REFLEX NEGATIVE (Negative); URINE PROTEIN (DIPSTICK) NEGATIVE (Negative); URINE SPECIFIC GRAVITY 1.025 (1.005-1.035); URINE UROBILINOGEN 0.2 E.U./dl (0.2-1.0)
[2020-12-17 12:06] LABS: ABSOLUTE NEUTROPHILS 9.6 thou/uL (1.4-8.2); BASOPHILS 0.5 % (0.0-2.0); EOSINOPHILS 0.2 % (0.0-3.0); HEMATOCRIT 38.6 % (37.0-47.0); HEMOGLOBIN 12.7 gm/dL (12.0-15.0); LYMPHOCYTES 9.4 % (24.0-44.0); MCH 29.5 pg (26.0-34.0); MCHC 32.8 g/dL (28.0-37.0); MCV 90.2 fL (80.0-100.0); PLATELET COUNT 195 thou/uL (150-400); POLYS 82.9 % (36.0-66.0); RBC 4.29 mil/uL (4.20-5.00); RDW 14.2 % (10.5-14.5); WBC 11.6 thou/uL (4.0-11.0)
[2020-12-17 12:13] LABS: CALCIUM 9.6 mg/dL (8.5-10.1); CREATININE 0.9 mg/dL (0.6-1.0)
[2020-12-17 12:19] LABS: ALBUMIN 3.8 g/dL (3.4-5.0); TOTAL BILIRUBIN 0.6 mg/dL (0.2-1.0); TOTAL PROTEIN 8.3 g/dL (6.4-8.2)
[2020-12-17] MEDS ORDERED: TRAMADOL 50 MG50 MG PO (13:55)
[2020-12-17 14:12] VITALS: BP 134/48
== END 2020-12-17 14:28 | disposition home or self-care (01) ==
LOC: ER 10:57
PROVIDERS: Emergency Medicine
DX: R10.31 Right lower quadrant pain (principal); J44.9 Chronic obstructive pulmonary disease, unspecified; E11.9 Type 2 diabetes mellitus without complications; Z90.710 Acquired absence of both cervix and uterus; Z90.49 Acquired absence of other specified parts of digestive tract; Z79.899 Other long term (current) drug therapy; Z79.4 Long term (current) use of insulin; Z79.82 Long term (current) use of aspirin; Z79.01 Long term (current) use of anticoagulants; Z87.891 Personal history of nicotine dependence; Z88.1 Allergy status to other antibiotic agents; Z88.5 Allergy status to narcotic agent; Z88.8 Allergy status to other drugs, medicaments and biological substances

== ENCOUNTER 2020-12-18 03:03 | Inpatient (IN) | payer OTHER ==
[~2020-12-18] VITALS: Ht 160 cm; Wt 55.3 kg
[~2020-12-18 03:03] MED LIST changes: +TRAMADOL 50 MG50 MG PO
[2020-12-18 03:07] VITALS: BP 114/55
[2020-12-18 03:44] LABS: MCH 29.4 pg (26.0-34.0); MCHC 32.5 g/dL (28.0-37.0); MCV 90.3 fL (80.0-100.0); PLATELET COUNT 211 thou/uL (150-400); RBC 4.43 mil/uL (4.20-5.00); RDW 14.3 % (10.5-14.5); WBC 23.2 thou/uL (4.0-11.0)
[2020-12-18 03:56] LABS: CALCIUM 9.4 mg/dL (8.5-10.1); CREATININE 1.2 mg/dL (0.6-1.0); POTASSIUM 4.7 mmol/L (3.5-5.1)
[2020-12-18 04:01] LABS: ALBUMIN 3.9 g/dL (3.4-5.0); TOTAL BILIRUBIN 0.6 mg/dL (0.2-1.0); TOTAL PROTEIN 8.1 g/dL (6.4-8.2)
[2020-12-18 04:19] LABS: APTT 23.8 Seconds (24.5-32.8); PROTIME 11.2 Seconds (9.3-11.4)
[2020-12-18 04:46] LABS: ABSOLUTE NEUTROPHILS 21.6 thou/uL (1.4-8.2); LARGE PLATELETS RARE
[2020-12-18 05:38] VITALS: BP 143/65
[2020-12-18 05:48] VITALS: BP 147/94
[2020-12-18 06:10] VITALS: BP 175/73
--- NOTE | 2020-12-18 08:00 | NUR ---
PT CAME UP TO UNIT 2 HOURS AGO FOR ABD PAIN AND RECTAL BLEEDING. PT A&O AND WALKS W/O WALKER AT [facility] BUT VERY WEAK HERE SO BED ALARM ON. UP TO THE BSC W/ STANDBY TO VOID AND AND HAVE STOOL. BRIGHT RED BLOOD MODERATE AMT NOTED. GI CONSULTED AND SAW PT THIS AFTERNOON. BLOOD SHOWN TO . PT TAKING CLEAR LIQUIDS BUT NOTED TO HAVE WORSE ABD CRAMPING AFTER TAKING PO SO REDUCED HER BACK TO WATER AND SHE AGREED. IV PAIN MED HELPING AND PT ABLE TO SLEEP SOME. PLAN FOR EGD TOMORROW.
[2020-12-18 16:00] VITALS: BP 144/58
[2020-12-18 18:58] VITALS: BP 135/63
[2020-12-19 04:37] VITALS: BP 115/34
[2020-12-19 04:49] LABS: HEMATOCRIT 34.5 % (37.0-47.0); HEMOGLOBIN 11.3 gm/dL (12.0-15.0); MCH 29.7 pg (26.0-34.0); MCHC 32.6 g/dL (28.0-37.0); RBC 3.8 mil/uL (4.20-5.00); RDW 14.4 % (10.5-14.5); WBC 11.5 thou/uL (4.0-11.0)
[2020-12-19 05:01] LABS: CALCIUM 8.1 mg/dL (8.5-10.1); CREATININE 0.9 mg/dL (0.6-1.0); POTASSIUM 3.8 mmol/L (3.5-5.1)
--- NOTE | 2020-12-19 05:59 | NUR ---
PT UP TO THE BSC WITH ASSIST.PT HAD BMX1 THIS SHIFT.NOT ABLE TO COLLECT SPECIMEN FOR CDIFF BC IT WAS MIXED WITH URINE.ISOLATION PREC IN PLACE.CONVERSION WORKER NOTIFED THAT PT NEEDS TO BE MOVED TO ANOTHER UNIT DUE TO ISOLATION.SMALL AMT OF BLOODY STOOL NOTED.PT NPO SINCE LA FOR EGD TODAY.CALL LIGHT WITHIN REACH.
[2020-12-19 07:40] VITALS: BP 110/46
--- NOTE | 2020-12-19 14:58 | NUR ---
ASSUMED PT CARE THIS AM. PT IS ALERT & ORIENTED X4. PT HAS IV SITE ON L FA & R FA. PT IS UP WITH ASSISR X1 AND BSC. PT IS ACCUCHECK ACHS. STOOL SAMPLE DONE THIS AM. INFORM PT SON ABOUT C DIFF RESULT PER REQUEST VIA TELEPHONE THIS PM. PT IS ON THE BED SLEEPING, BED ON THE LOWEST POSITION, SIDE RAILS UP, CALL LIGHT WITHIN REACH. WILL CONTINUE TO MONITOR PT. FOLLOW POC.
--- NOTE | 2020-12-19 15:31 | NUR ---
ASSESSMENT: CM REVIEWED CHART. PT ADMITS FROM HOME DUE TO COLITIS. PT IS CURRENTLY ON IV ANBX. CM SPOKE WITH PATIENTS SON SILVINA/DPBRUNO. PT LIVES IN A HOUSE BY HERSELF. PT HAS ONE STEP TO ENTER THE HOME AND NO STEPS SHE HAS TO USE ONCE INSIDE. PT HAS A WALKER AND A CANE AT HOME TO ASSIST WITH AMBULATION. PTS SON SILVINA REPORTS THEY HAVE PUT UP MULTIPLE GRAN BARS IN THE HOME TO ASSIST HER. PT HAS TWO SONS WHO ARE SUPPORTIVE AND HELP HER. PT DOES NOT DRIVE AND THEY ASSIST WITH HER ERRANDS/GROCERIES. PT HAS HAD [facility] IN THE PAST AND HAS NO BEEN TO A SNF. PT HAS A GRAB BAR AND SHOWER CHAIR. PT IS CURRENTLY BEING RULED OUT FOR CDIFF. PHYSICAL THERAPY WAS UNABLE TO WORK WITH PATIENT THIS AM. PT/OT OT SEE PATIENT AND CM WILL ASSIST WITH RECOMMENDATIONS.
[2020-12-19 16:30] VITALS: BP 148/50
--- NOTE | 2020-12-19 16:30 | NUR ---
ASSUMED PT CARE THIS AM. PT IS ALERT & ORIENTED X4. PT HAS IV SITE ON L FA & R FA RUNNING NS @ 125ML/HR. PT IS UP WITH ASSIST X1 AND BSC. PT HAS MULTIPLE LOOSE BOWEL MOVEMENT DURING SHIFT. TAKEN STOOL SAMPLE THIS AM. UPDATED POSITIVE C. DIFF RESULT TO SON AND DR HAQ. PT IS ACCHUCK ACHS. BLOOD GLUCOSE AND MEDICATION IS WELL TOLERATED. PT C/O NAUSEA THIS AM AND GIVEN NAUSEA MED. PT ON THE BED, BED ON THE LOWEST POSITION, SIDE RAILS UP, CALL LIGHT WITHIN REACH. WILL CONTINUE MONITOR PT. FOLLOW POC.
[2020-12-19 18:58] VITALS: BP 158/57
--- NOTE | 2020-12-20 02:34 | NUR ---
[facility],PT WAS POSITIVE FOR CDIFF.ORDER NOTED TO TRANSFER PT 4W([phone]).PT AWARE OF THE TRANSFER.PT TRANSFERRED WITH ALL HER PERSONAL BELONGINGS.
--- NOTE | 2020-12-20 03:26 | NUR ---
ASSUMED CARE OF PT FROM 4S AT 1930HRS. PT IS AOX4 AND LETS NEEDS BE KNOWN. FALL PRECAUTION IN PLACE. PT DENIED ANY SIGNIFICANT PAIN, NAUSEA OR SOA. ASSESSMENT CHARTED. PT WAS ABLE TO GET COMFORTABLE AND SLEEP PART OF THE SHIFT. VSS AND NO S/S OF ACUTE DISTRESS. NO LOOSE BM NOTED THIS SHIFT. ISOLATION IN PLACE FOR C-DIFF. WILL CONTINUE TO MONITOR FOR CHANGES.
[2020-12-20 09:22] VITALS: BP 148/42
--- NOTE | 2020-12-20 13:30 | NUR ---
PT WAS SEEN BY PT AND OT THIS DAY. THEY BOTH INDIATED THAT PT WOULD BE SAFE TO RETURN HOME ONCE MEDICALLY STABLE. PT CONTINUES ON PO ABX. CARE TEAM INDICATING THAT PT MAY BE MEDICALLY STABLE TO DC HOME TOMORROW. CM FOLLOWING SHOULD ANY DC NEEDS ARISE.
[2020-12-20 16:28] VITALS: BP 156/61
[2020-12-20 19:52] VITALS: BP 167/69
[2020-12-21 07:10] VITALS: BP 166/70
[2020-12-21 08:07] LABS: HEMATOCRIT 36.7 % (37.0-47.0); MCH 29.2 pg (26.0-34.0); MCHC 32.6 g/dL (28.0-37.0); MCV 89.5 fL (80.0-100.0); RBC 4.1 mil/uL (4.20-5.00); RDW 14.5 % (10.5-14.5); WBC 8.4 thou/uL (4.0-11.0)
[2020-12-21 08:33] LABS: ALBUMIN 3.2 g/dL (3.4-5.0); CALCIUM 8.6 mg/dL (8.5-10.1); CREATININE 0.8 mg/dL (0.6-1.0); PHOSPHORUS 2.7 mg/dL (2.5-4.9); POTASSIUM 3.3 mmol/L (3.5-5.1)
[2020-12-21] MEDS ORDERED: FIRVANQ50 MG/1 ML PO (11:14)
--- NOTE | 2020-12-21 12:26 | NUR ---
CARE TEAM INDIATED THAT PT IS MEDICALLY STABLE TO DC HOME THIS DAY WIHT HH SERVICES. CM ATTEMPTED PC TO PT'S ROOM WITH NO ANSWER. CM CALLED PT'S SON SILVINA AND INDICATED THAT PHYSICIAN IS RECOMMENDING HOME HEALTH PT, OT, NURSING UPON DC HOME THIS DAY. THEY ARE RECEPTIVE TO HH SERVICES. REFERRAL BEING SENT. PT'S SON TO TRANSPORT PT HOME BETWEEN [phone] THIS AFTERNOON.
--- NOTE | 2020-12-21 13:03 | NUR ---
FAXED REFERRAL TO [facility] SPOKE WITH HANDY IN ADM SHE CAN ACCEPT PT TO DC TODAY.
[2020-12-21 13:05] VITALS: BP 166/70
--- NOTE | 2020-12-21 13:43 | NUR ---
ASSUMED CARE OF PATIENT AT SHIFT CHANGE. ASSESSMENT CHARTED. MEDICATIONS ADMINISTERED PER EMAR. VSS. PATIENT IS A&OX4 AND MAKES NEEDS KNOWN. PATIENT ABULATED X1 AND STABLE. TOLERATED PO DIET WELL W NO N/V/D. DENIED PAIN. EAGER TO DISCHARGE. PATIENT WAS DEEMED MEDICALLY STABLE AND WAS DISCHARGED AT APPROX 1345. NO OOUTSTANDING EVENTS OR NEEDS VOICED. IV DISCONTINUED, DISCHARGE INTRUCTIONS AND PRESCRIPTIONS GIVEN TO DPOA.
--- NOTE | 2020-12-28 09:09 | HC ---
[facility] [place] [address] CONSULTATION Name: SHIN MCINTOSH Room #: 459-P [facility] IN M.R.#: [id number] Admission: 12/18/20 Attend Phys: Leonardo Lott MD Discharge: 12/21/20 Date of : 32 Report #: [id number] THIS REPORT FOR: cc: Rhona Das MD, Genelle J. MD McElhinney, Christian C. MD ~ DATE OF SERVICE: 12/18/2020 HISTORY OF PRESENT ILLNESS: The patient is an 89-year-old female who began having intermittent abdominal pain, nausea, vomiting and diarrhea for the past 3-4 days, started having bloody stools yesterday. No previous history of GI bleed. She believes her last colonoscopy was approximately 10 years ago. She is unsure of the findings at that time. She denies any fevers or chills. She denies any hematemesis. She is on aspirin and Plavix for history of peripheral vascular disease, currently denies any chest pain or shortness of breath. A CT scan of her abdomen and pelvis was performed on admission, which shows a diffuse circumferential wall thickening throughout the colon consistent with a nonspecific pancolitis, sigmoid diverticulosis noted without acute diverticulitis, circumferential wall thickening of the bladder, which may be related to incomplete distention or cystitis. She does have an elevated white count. She was given 1 dose of Zosyn. She is currently on Flagyl at this time as well. PAST MEDICAL HISTORY: Asthma, COPD, history of diabetes, previous hysterectomy, x3 in the past, cholecystectomy, history of diverticulitis, irritable bowel syndrome, coronary artery disease, hyperlipidemia, depression, history of a stent in her left leg. ALLERGIES: TO DOXEPIN, LANSOPRAZOLE, MINOCYCLINE, CODEINE, GUAIFENESIN, MORPHINE. MEDICATIONS ON ADMISSION: Insulin, Lipitor, glipizide, omeprazole, nitroglycerin p.r.n., Plavix, and aspirin. REVIEW OF SYSTEMS: As per HPI. PHYSICAL EXAMINATION: VITAL SIGNS: Temperature is 36.7, pulse is 89, blood pressure is 175/73, respiratory rate is 14. GENERAL: She is alert and oriented x3. She does complain of abdominal pain. She is in mild distress. HEENT: Sclerae nonicteric. Oropharynx clear. NECK: Supple, without lymphadenopathy. CARDIOVASCULAR: Regular rate. CHEST: Clear to [place] [address] CONSULTATION Name: SHIN MCINTOSH Room #: 459-P [facility] IN M.R.#: [id number] Admission: 12/18/20 Attend Phys: Leonardo Lott MD Discharge: 12/21/20 Date of : 32 Report #: [id number] ABDOMEN: Soft. She is tender to palpation, possible peritoneal type of signs, previous midline incision scar is well healed, nondistended, a few bowel sounds. EXTREMITIES: No cyanosis, clubbing or edema. LABORATORY DATA: WBC is 23.2, hemoglobin 13.0, platelet count is 211. INR 1.0. Sodium 133, potassium 4.7, chloride 97, bicarbonate 23, BUN 38, creatinine 1.2, glucose 195. Lactic acid level 1.4, calcium 9.4, total bilirubin 0.6, AST 19, ALT 18, alkaline phosphatase 118, albumin 3.4. ASSESSMENT AND PLAN: Abdominal pain, nausea, vomiting, diarrhea, colitis noted on CT, elevated white count. Suspect infectious etiology. We will send stool for culture and Clostridium difficile. Agree with Flagyl, may need to add other antibiotics in the near future. The patient is tender on exam. We will also have surgery evaluate the patient to follow along. If she does not have improvement, may need to consider endoscopy for further evaluation. Thank you for allowing me to participate in her care. <ELECTRONICALLY SIGNED> By: Manjinder Venegas MD 12/28/20 [id number] Manjinder Venegas MD /nt
== END 2020-12-21 16:22 | disposition home or self-care (01) | DRG 871 ==
LOC: ER 03:03 → 4W 05:30 → 4S 05:30 → ER 05:49 → 4S 05:49 → 4W 12-19 19:40 → 4S 12-19 19:40 → 4W 12-20 10:00
PROVIDERS: Emergency Medicine; Hospitalist; Surgery; ADMIT Internal Medicine; ATTEND Internal Medicine
DX: A41.9 Sepsis, unspecified organism (principal); N17.0 Acute kidney failure with tubular necrosis; A04.72 Enterocolitis due to Clostridium difficile, not specified as recurrent; K92.1 Melena; K51.00 Ulcerative (chronic) pancolitis without complications; J44.9 Chronic obstructive pulmonary disease, unspecified; F41.9 Anxiety disorder, unspecified; D72.829 Elevated white blood cell count, unspecified; I25.10 Atherosclerotic heart disease of native coronary artery without angina pectoris; E78.5 Hyperlipidemia, unspecified; F32.9 Major depressive disorder, single episode, unspecified; E11.9 Type 2 diabetes mellitus without complications; K57.30 Diverticulosis of large intestine without perforation or abscess without bleeding; Z79.4 Long term (current) use of insulin; Z98.891 History of uterine scar from previous surgery; Z87.891 Personal history of nicotine dependence; Z90.710 Acquired absence of both cervix and uterus; Z90.49 Acquired absence of other specified parts of digestive tract; Z79.899 Other long term (current) drug therapy; Z79.01 Long term (current) use of anticoagulants; Z79.82 Long term (current) use of aspirin; Z88.5 Allergy status to narcotic agent; Z88.8 Allergy status to other drugs, medicaments and biological substances
CPT/HCPCS: 10040; 10195

== ENCOUNTER → 2021-03-21 | Outpatient (CLI) | payer OTHER ==
[~2021-03-21] MED LIST changes: +FIRVANQ50 MG/1 ML PO
== END ==
LOC: SJCVCIMAG 10:21
PROVIDERS: ATTEND Nuclear Medicine Nuclear Cardiology
DX: I70.203 Unspecified atherosclerosis of native arteries of extremities, bilateral legs (principal); I77.9 Disorder of arteries and arterioles, unspecified; I25.10 Atherosclerotic heart disease of native coronary artery without angina pectoris; E78.00 Pure hypercholesterolemia, unspecified; E11.9 Type 2 diabetes mellitus without complications; Z90.49 Acquired absence of other specified parts of digestive tract; Z90.710 Acquired absence of both cervix and uterus; Z95.820 Peripheral vascular angioplasty status with implants and grafts; Z88.5 Allergy status to narcotic agent; Z79.82 Long term (current) use of aspirin; Z79.4 Long term (current) use of insulin; Z79.899 Other long term (current) drug therapy; Z87.891 Personal history of nicotine dependence; Z82.49 Family history of ischemic heart disease and other diseases of the circulatory system

== ENCOUNTER → 2021-03-30 | Outpatient (CLI) | payer OTHER ==
[~2021-03-30] VITALS: Ht 157.5 cm; Wt 55.3 kg
[2021-03-30 08:29] VITALS: BP 138/59
[2021-03-30 08:50] LABS: HEMATOCRIT 38.4 % (37.0-47.0); HEMOGLOBIN 12.9 gm/dL (12.0-15.0); MCH 29.7 pg (26.0-34.0); MCHC 33.6 g/dL (28.0-37.0); MCV 88.6 fL (80.0-100.0); RBC 4.33 mil/uL (4.20-5.00); RDW 14.1 % (10.5-14.5); WBC 8.8 thou/uL (4.0-11.0)
[2021-03-30 08:59] LABS: CALCIUM 9.6 mg/dL (8.5-10.1); POTASSIUM 3.9 mmol/L (3.5-5.1)
== END | disposition home or self-care (01) ==
LOC: CATH 07:35
PROVIDERS: ATTEND Nuclear Medicine Nuclear Cardiology
DX: E11.51 Type 2 diabetes mellitus with diabetic peripheral angiopathy without gangrene (principal); I70.238 Atherosclerosis of native arteries of right leg with ulceration of other part of lower leg; L97.919 Non-pressure chronic ulcer of unspecified part of right lower leg with unspecified severity; I25.10 Atherosclerotic heart disease of native coronary artery without angina pectoris; E78.5 Hyperlipidemia, unspecified; J44.9 Chronic obstructive pulmonary disease, unspecified; F32.9 Major depressive disorder, single episode, unspecified; F41.9 Anxiety disorder, unspecified; Z98.890 Other specified postprocedural states; Z79.899 Other long term (current) drug therapy; Z90.49 Acquired absence of other specified parts of digestive tract; Z90.710 Acquired absence of both cervix and uterus; Z88.8 Allergy status to other drugs, medicaments and biological substances; Z79.4 Long term (current) use of insulin; Z87.891 Personal history of nicotine dependence

== ENCOUNTER → 2021-08-02 | Outpatient (CLI) | payer OTHER | LOC: SJCVCIMAG 09:46 | PROVIDERS: ATTEND Nuclear Medicine Nuclear Cardiology | DX: I70.203 Unspecified atherosclerosis of native arteries of extremities, bilateral legs (principal); I77.9 Disorder of arteries and arterioles, unspecified; E78.00 Pure hypercholesterolemia, unspecified; E11.9 Type 2 diabetes mellitus without complications; Z79.4 Long term (current) use of insulin; I65.29 Occlusion and stenosis of unspecified carotid artery; Z88.5 Allergy status to narcotic agent; Z87.891 Personal history of nicotine dependence; Z79.899 Other long term (current) drug therapy; Z79.82 Long term (current) use of aspirin; M79.605 Pain in left leg; M79.604 Pain in right leg ==

== ENCOUNTER 2021-09-02 12:59 | Emergency (ER) | payer OTHER ==
[~2021-09-02] VITALS: Ht 152.4 cm; Wt 54.0 kg
[2021-09-02 13:21] VITALS: BP 160/74
[2021-09-02] MEDS ORDERED: CEPHALEXIN500 MG PO (14:35)
== END 2021-09-02 14:53 | disposition home or self-care (01) ==
LOC: ER 12:59
DX: R04.0 Epistaxis (principal); E11.9 Type 2 diabetes mellitus without complications; J44.9 Chronic obstructive pulmonary disease, unspecified; E78.5 Hyperlipidemia, unspecified; Z87.891 Personal history of nicotine dependence; Z88.1 Allergy status to other antibiotic agents; Z88.5 Allergy status to narcotic agent; Z88.8 Allergy status to other drugs, medicaments and biological substances; Z79.899 Other long term (current) drug therapy; Z79.4 Long term (current) use of insulin; Z98.890 Other specified postprocedural states